=== PATIENT | male | born 1945 | race Caucasian/White ===

== ENCOUNTER 2017-03-19 05:22 | Day surgery (SDC) | payer OTHER ==
[~2017-03-19] VITALS: Ht 170.2 cm; Wt 68.0 kg
[~2017-03-19 05:22] MED LIST: ATIVAN0.5 MG PO; Ativan PO; Bactrim,Septra DS 80 PO; Duragesic TD; FLEXERIL5 MG PO; Flexeril PO; HYDROCHLOROTHIA25 MG PO; Hydrodiuril,Oretic,E PO; MORPHINE SULFAT15 M1 PO; OMEPRAZOLE40 M1 PO; OXYCODONE HCL10 MG PO; OXYCODONE HCL20 M1 PO; Percocet 5/325,Endoc PO; STOOL SOFTENER100 MG PO; Theragran PO
[2017-03-19 05:54] VITALS: BP 153/68
[2017-03-19] MEDS ORDERED: NORCO 5/3251 TABLET PO (08:50)
[2017-03-19 10:15] VITALS: BP 173/74
[2017-03-19 11:14] VITALS: BP 159/73
== END 2017-03-19 11:15 | disposition home or self-care (01) ==
LOC: SDC 05:22
PROC: 0YU60JZ Supplement Left Inguinal Region with Synthetic Substitute, Open Approach (ICD-10-PCS; principal; 2017-03-19)
DX: K40.90 Unilateral inguinal hernia, without obstruction or gangrene, not specified as recurrent (principal); K21.9 Gastro-esophageal reflux disease without esophagitis; Z85.01 Personal history of malignant neoplasm of esophagus; Z87.891 Personal history of nicotine dependence
CPT/HCPCS: C1781; J0330; J0690; J1170; J2405; J3010